=== PATIENT | female | born 1985 | race Hispanic/Latino ===

== ENCOUNTER 2018-01-02 14:14 | Emergency (ER) | payer BC ==
[2018-01-02 14:14] VITALS: BMI 25.4
[2018-01-02 14:26] VITALS: TEMP 98.7
--- NOTE | 2018-01-02 15:05 | ED PDOC ---
Arrival/HPI - General Chief Complaint: Headache Time Seen by Provider: 01/02/18 15:04 Historian: Patient, Spouse - History of Present Illness Narrative History of Present Illness (Text): 01/02/18 15:05 This 32 yo female with pmh adhd, and migraines, presents to this ED with her spouse, c/o migraines exacerbation since last night. Patient stated she was recently prescribed Adderal. Patient took Adderal for first time yesterday. Patient stated that a few hours later after taking Adderal, she developed a AMEZCUA with nausea, and vomiting. Patient denies sob, cp, abdominal pain, urinary symptoms, diplopia, dysarthria, weakness, paresthesias, or abnormal gait. Time/Duration: Other (noncontributory) Quality: Throbbing Context: Home Past Medical History - Provider Review Nursing Documentation Reviewed: Yes - Past History Past History: No Previous - Infectious Disease Hx of Infectious Diseases: None - Tetanus Immunization Tetanus Immunization: Unknown - Cardiac Hx Cardiac Disorders: No Hx Pacemaker: No - Pulmonary Hx Respiratory Disorders: Yes Hx Asthma: Yes - Neurological Hx Neurological Disorder: Yes Hx Migraine: Yes - HEENT Hx HEENT Disorder: No - Renal Hx Renal Disorder: No - Endocrine/Metabolic Hx Endocrine Disorders: No - Hematological/Oncological Hx Blood Disorders: No - Integumentary Hx Dermatological Disorder: No - Musculoskeletal/Rheumatological Hx Musculoskeletal Disorders: Yes - Gastrointestinal Hx Gastrointestinal Disorders: No - Genitourinary/Gynecological Hx Genitourinary Disorders: No - Psychiatric Hx Psychophysiologic Disorder: Yes Hx Anxiety: Yes Hx Substance Use: No - Surgical History Hx Section: Yes - Anesthesia Hx Anesthesia Reactions: No Hx Malignant Hyperthermia: No - Suicidal Assessment Feels Threatened In Home Enviroment: No Family/Social History - Physician Review Nursing Documentation Reviewed: Yes Family/Social History: Other (noncontributory) Smoking Status: Never Smoked Hx Alcohol Use: No Hx Substance Use: No Hx Substance Use Treatment: No Allergies/Home Meds Allergies/Adverse Reactions: Allergies azithromycin Adverse Reaction (Verified 01/02/18 15:06) VOMITING Home Medications: Home Meds Medication Instructions Recorded Confirmed Dextroamphetamine/Amphetamine 10 mg PO DAILY 01/02/18 01/02/18 [Adderall 10 mg Tablet] Levonorgestrel [Mirena] 1 unit IN-CAVERNO ONCE 01/02/18 01/02/18 Review of Systems - Review of Systems Constitutional: Normal. absent: Fatigue, Weight Change, Fevers Eyes: Normal ENT: Normal Respiratory: Normal. absent: SOB, Cough Cardiovascular: Normal. absent: Chest Pain Gastrointestinal: Nausea, Vomiting. absent: Abdominal Pain, Constipation, Diarrhea Genitourinary Female: Normal. absent: Dysuria, Frequency, Hematuria, Vaginal Bleeding, Vaginal Discharge Musculoskeletal: Normal. absent: Arthralgias, Back Pain, Neck Pain Skin: Normal. absent: Rash Neurological: Normal, Headache, Dizziness. absent: Focal Weakness, Speech Changes, Facial Droop, Disequilibrium, Seizure Endocrine: Normal Hemo/Lymphatic: Normal Psychiatric: Normal. absent: Anxiety, Depression, Suicidal Ideation Physical Exam Vital Signs Temp Pulse Resp BP Pulse Ox 01/02/18 16:47 82 17 112/80 100 01/02/18 14:22 98.7 F 90 16 110/76 95 Temperature: Afebrile Blood Pressure: Normal Pulse: Regular Respiratory Rate: Normal Appearance: Positive for: Well-Appearing, Non-Toxic, Comfortable Pain Distress: None Mental Status: Positive for: Alert and Oriented X 3 - Systems Exam Head: Present: Atraumatic, Normocephalic Pupils: Present: PERRL Extroacular Muscles: Present: EOMI Conjunctiva: Present: Normal Mouth: Present: Moist Mucous Membranes Neck: Present: Normal Range of Motion Respiratory/Chest: Present: Clear to Auscultation, Good Air Exchange. No: Respiratory Distress, Accessory Muscle Use Cardiovascular: Present: Regular Rate and Rhythm, Normal S1, S2. No: Murmurs Abdomen: Present: Normal Bowel Sounds. No: Tenderness, Distention, Peritoneal Signs Back: Present: Normal Inspection. No: CVA Tenderness Upper Extremity: Present: Normal Inspection, Normal ROM. No: Cyanosis, Edema Lower Extremity: Present: Normal Inspection, Normal ROM. No: Edema Neurological: Present: GCS=15, CN II-XII Intact, Speech Normal, Motor Func Grossly Intact, Normal Sensory Function, Normal Cerebellar Funct, Gait Normal, Memory Normal Skin: Present: Warm, Dry, Normal Color. No: Rashes Psychiatric: Present: Alert, Oriented x 3, Normal Insight, Normal Concentration Medical Decision Making ED Course and Treatment: 01/02/18 17:13 Re-evaluation. Patient feels better. Discussed results and plan with patient who expresses understanding. All questions answered and there is agreement with the plan to discharge home with instructions. Patient stable for discharge. Return if symptoms persist or worsen Patient stated AMEZCUA has improved. Patient is alert and oriented x 3. Patient has a normal gait, and speech. No neuro focal deficits Re-evaluation Time: 17:14 Reassessment Condition: Re-examined, Improved - Medication Orders Current Medication Orders: Discontinued Medications Diphenhydramine HCl (Benadryl) 50 mg IVP STAT STA Stop: 01/02/18 15:08 Last Admin: 01/02/18 15:52 Dose: 50 mg IVP Administration Document 01/02/18 15:52 SF (Rec: 01/02/18 15:52 [email or web address]) Charges for Administration # of IVP Administrations 1 Sodium Chloride (Sodium Chloride 0.9%) 1,000 mls @ 999 mls/hr IV .Q1H1M STA Stop: 01/02/18 16:06 Last Admin: 01/02/18 15:51 Dose: 999 mls/hr eMAR Start Stop Document 01/02/18 15:51 SF (Rec: 01/02/18 15:52 [email or web address]) Intravenous Solution Start Date 01/02/18 Start Time 15:51 End Date 01/02/18 End time 16:52 Total Infusion Time 61 Ketorolac Tromethamine (Toradol) 15 mg IVP STAT STA Stop: 01/02/18 15:08 Last Admin: 01/02/18 15:52 Dose: 15 mg MAR Pain Assessment Document 01/02/18 15:52 SF (Rec: 01/02/18 15:52 [email or web address]) Pain Reassessment Is this a pain reassessment? Yes Sleep Is patient sleeping during reassessment? No Presence of Pain Presence of Pain Yes Pain Scale Used Pain Scale Used Numeric IVP Administration Document 01/02/18 15:52 SF (Rec: 01/02/18 15:52 [email or web address]) Charges for Administration # of IVP Administrations 1 Metoclopramide HCl (Reglan) 10 mg IVP STAT STA Stop: 01/02/18 15:07 Last Admin: 01/02/18 15:58 Dose: 10 mg IVP Administration Document 01/02/18 15:58 SF (Rec: 01/02/18 15:58 [email or web address]) Charges for Administration # of IVP Administrations 1 Disposition/Present on Arrival - Present on Arrival Any Indicators Present on Arrival: No History of DVT/PE: No History of Uncontrolled Diabetes: No Urinary Catheter: No History of Decub. Ulcer: No History Surgical Site Infection Following: None - Disposition Have Diagnosis and Disposition been Completed?: Yes Diagnosis: Headache Disposition: HOME/ ROUTINE Disposition Time: 17:14 Patient Plan: Discharge Patient Problems: Current Active Problems Problem Status Onset Headache Acute Condition: IMPROVED Discharge Instructions (ExitCare): Headache, Adult Additional Instructions: Call private doctor for follow up visit in 1-2 days. Take medication as instructed. return to emergency if symptoms worsen. Prescriptions: Famotidine [Pepcid] 40 mg PO DAILY #10 tablet Ibuprofen [Motrin] 600 mg PO Q8 PRN #20 tab PRN Reason: Pain, Severe (8-10) Referrals: Enrrique BARTON,Rickey Ceballos MD [Primary Care Provider] - Follow up with primary Forms: [facility] ([place])
[2018-01-02] MEDS ORDERED: Sodium Chloride 0.9% 1,000 ML IV STA (15:06)
[2018-01-02] MEDS ORDERED: DiphenhydrAMINE 50 mg/ml Inj IVP STA (15:07)
[2018-01-02 16:48] VITALS: RESP 17; O2SAT 100
[2018-01-02 17:36] VITALS: BP 118/84; PULSE 75
== END 2018-01-02 17:35 | disposition home or self-care (01) ==
LOC: ED 14:14
DX: R51 Headache (principal)
CPT/HCPCS: 81025; 96361; 96374; 96375; 99285; J1200; J1885; J2765; J7040